=== PATIENT | female | born 1990 | race Caucasian/White ===

== ENCOUNTER 2017-01-28 22:46 | Emergency (ER) | payer SELFPAY ==
[~2017-01-28] VITALS: Ht 180.3 cm; Wt 128.0 kg
[~2017-01-28 22:46] MED LIST: BIRTH CONTROL; CIPROFLOXACN500 MG PO; FLEXERIL PO; LEXAPRO10 MG PO; PROAIR HFA IN; PROZAC20 MG PO; SINGLAIR 5 MG CH5 MG PO; ULTRAM50 M1 PO; ZOFRAN4 MG/TAB PO
[2017-01-28] MEDS ORDERED: ORTHO TRI-CYCLEN LO PO (23:02)
[2017-01-29 00:16] LABS: HEMATOCRIT 40.9 % (37.0-47.0); HEMOGLOBIN 13.6 g/dl (12.0-16.0); IMMATURE GRANULOCYTES 0.3 % (0.0-1.0); MEAN CELL VOLUME 84.3 fL CALC (80.0-100.0); MEAN CORPUSCULAR HGB CONC 33.3 g/L CALC (32.0-36.0); NEUT# 7.92 thou/uL (2.00-7.15); RED BLOOD COUNT 4.85 mill/uL (4.20-5.60)
[2017-01-29 00:17] LABS: URINE BILIRUBIN - DIPSTICK NEGATIVE (NEGATIVE); URINE BLOOD DIPSTICK LARGE (NEGATIVE); URINE CLARITY CLEAR; URINE COLOR YELLOW; URINE GLUCOSE - DIPSTICK NEGATIVE (NEGATIVE); URINE KETONE NEGATIVE (NEGATIVE); URINE LEUK ESTERASE NEGATIVE (NEGATIVE); URINE NITRITE - DIPSTICK NEGATIVE (Negative); URINE PH 5.5 (4.5-8.0); URINE PROTEIN - DIPSTICK NEGATIVE (NEG-TRACE); URINE SPECIFIC GRAVITY >=1.030; URINE UROBILINOGEN - DIPSTICK 0.2 E.U./dL (0.2)
[2017-01-29 00:27] LABS: ALBUMIN 3.5 g/dL (3.2-5.0); ALKALINE PHOSPHATASE 127 u/l (38-126); AMYLASE 75 u/l (30-110); ANION GAP 15 (6-22 (CALC)); BILIRUBIN, TOTAL 0.2 mg/dL (0.0-1.4); BUN 14 mg/dL (7-17); BUN/CREATININE RATIO 12 (12-20 (CALC)); CALCIUM 9.2 mg/dL (8.4-10.2); CARBON DIOXIDE 25 mmol/l (22-30); CHLORIDE 106 mmol/l (95-108); CREATININE 1.2 mg/dL (0.5-1.0); GFR 55 ML/MIN (>=60 (CALC)); GFR FOR AFR.AMER. > 60 ML/MIN (>=60 (CALC)); GLUCOSE 97 mg/dL (65-105); LIPASE 208 u/l (23-300); POTASSIUM 3.5 mmol/l (3.5-5.1); SGOT/AST 32 u/l (14-36); SGPT/ALT 42 u/l (9-52); SODIUM 142 mmol/l (137-146); TOTAL PROTEIN 6.4 g/dL (6.3-8.2)
[2017-01-29 00:30] LABS: URINE RBC 50-100 RBC/hpf (0-5)
[2017-01-29 00:31] LABS: URINE BACTERIA FEW hpf; URINE CALCIUM OXALATE CRYSTALS FEW lpf; URINE MUCUS MODERATE hpf (NONE-FEW); URINE TRANSITIONAL EPI. CELLS FEW hpf
[2017-01-29] MEDS ORDERED: PERCOCET 5/325M1 TAB PO (01:26)
[2017-01-29 01:46] VITALS: BP 133/90
== END 2017-01-29 01:56 | disposition home or self-care (01) | DRG 392 ==
LOC: ED 22:46
PROVIDERS: Emergency Medicine
DX: R10.32 Left lower quadrant pain (principal); N21.1 Calculus in urethra; R19.7 Diarrhea, unspecified

== ENCOUNTER 2019-03-29 12:05 | Observation (INO) | payer SELFPAY ==
[~2019-03-29] VITALS: Ht 177.8 cm; Wt 131.3 kg
[~2019-03-29 12:05] MED LIST changes: +ORTHO TRI-CYCLEN LO PO; +PERCOCET 5/325M1 TAB PO
[2019-03-29 13:02] LABS: IMMATURE GRANULOCYTES 0.4 % (0.0-5.0); MEAN CELL VOLUME 84.3 fL CALC (80.0-100.0); MEAN CORPUSCULAR HGB 26.8 pG CALC (26.0-32.0); MEAN CORPUSCULAR HGB CONC 31.8 g/L CALC (32.0-36.0); NEUT# 11.42 thou/uL (2.00-7.15); RED BLOOD COUNT 5.22 mill/uL (4.20-5.60); RED CELL DISTRI WIDTH 13.4 % (11.5-15.5)
[2019-03-29 13:03] LABS: URINE BILIRUBIN - DIPSTICK NEGATIVE (NEGATIVE); URINE BLOOD DIPSTICK LARGE (NEGATIVE); URINE COLOR YELLOW; URINE GLUCOSE - DIPSTICK NEGATIVE (NEGATIVE); URINE KETONE TRACE mg/dL (NEGATIVE); URINE LEUK ESTERASE TRACE (NEGATIVE); URINE NITRITE - DIPSTICK NEGATIVE (Negative); URINE PROTEIN - DIPSTICK TRACE mg/dL (NEG-TRACE); URINE SPECIFIC GRAVITY >=1.030; URINE UROBILINOGEN - DIPSTICK 0.2 E.U./dL (0.2)
[2019-03-29 13:07] LABS: BARBITURATES NEGATIVE (NEGATIVE); COCAINE NEGATIVE (NEGATIVE); METHADONE NEGATIVE (NEGATIVE); OXCYCODONE NEGATIVE (NEGATIVE); TETRAHYDROCANNABIONOL NEGATIVE (NEGATIVE); TRICYLIC ANTIDEPRESSANTS NEGATIVE (NEGATIVE)
[2019-03-29 13:10] LABS: URINE BACTERIA MANY hpf
[2019-03-29 13:11] LABS: URINE SQUAMOUS EPITHELIAL CELL FEW EPI/hpf (0-FEW)
[2019-03-29 13:12] LABS: URINE HYALINE CAST FEW lpf (NONE-RARE)
[2019-03-29 13:20] LABS: ALBUMIN 4.5 g/dL (3.2-5.0); ALKALINE PHOSPHATASE 196 u/l (38-126); ANION GAP 17 (6-22 (CALC)); BILIRUBIN, TOTAL 0.4 mg/dL (0.0-1.4); BUN 12 mg/dL (7-17); BUN/CREATININE RATIO 14 (12-20 (CALC)); CARBON DIOXIDE 22 mmol/l (22-30); CHLORIDE 108 mmol/l (95-108); CREATININE 0.9 mg/dL (0.5-1.0); GFR > 60 ML/MIN (>=60 (CALC)); GFR FOR AFR.AMER. > 60 ML/MIN (>=60 (CALC)); POTASSIUM 4.1 mmol/l (3.5-5.1); SGOT/AST 25 u/l (14-36); SODIUM 143 mmol/l (137-146); TOTAL PROTEIN 7.5 g/dL (6.3-8.2)
[2019-03-29 19:35] VITALS: BP 112/69
[2019-03-30 04:00] VITALS: BP 102/65
[2019-03-30 05:22] LABS: ALKALINE PHOSPHATASE 147 u/l (38-126); AMYLASE 83 u/l (30-110); ANION GAP 12 (6-22 (CALC)); BILIRUBIN, TOTAL 0.3 mg/dL (0.0-1.4); BUN 11 mg/dL (7-17); BUN/CREATININE RATIO 12 (12-20 (CALC)); CARBON DIOXIDE 26 mmol/l (22-30); CHLORIDE 106 mmol/l (95-108); GFR > 60 ML/MIN (>=60 (CALC)); GFR FOR AFR.AMER. > 60 ML/MIN (>=60 (CALC)); LIPASE 225 u/l (23-300); MAGNESIUM 1.9 mg/dL (1.6-2.3); POTASSIUM 3.8 mmol/l (3.5-5.1); SGOT/AST 18 u/l (14-36); SODIUM 140 mmol/l (137-146); TOTAL PROTEIN 6.1 g/dL (6.3-8.2)
[2019-03-30 05:25] LABS: HEMATOCRIT 38.7 % (37.0-47.0); HEMOGLOBIN 12.4 g/dl (12.0-16.0); IMMATURE GRANULOCYTES 0.4 % (0.0-5.0); MEAN CELL VOLUME 86.2 fL CALC (80.0-100.0); MEAN CORPUSCULAR HGB 27.6 pG CALC (26.0-32.0); NEUT# 6.62 thou/uL (2.00-7.15); RED BLOOD COUNT 4.49 mill/uL (4.20-5.60); RED CELL DISTRI WIDTH 13.5 % (11.5-15.5)
[2019-03-30 05:26] LABS: ALBUMIN 3.5 g/dL (3.2-5.0)
[2019-03-30 07:34] VITALS: BP 109/59
[2019-03-30 16:15] VITALS: BP 115/73
[2019-03-30 19:20] VITALS: BP 111/68
[2019-03-31 04:11] VITALS: BP 108/72
[2019-03-31 05:15] LABS: HEMATOCRIT 38.3 % (37.0-47.0); HEMOGLOBIN 12.1 g/dl (12.0-16.0); IMMATURE GRANULOCYTES 0.2 % (0.0-5.0); MEAN CORPUSCULAR HGB 27.5 pG CALC (26.0-32.0); MEAN CORPUSCULAR HGB CONC 31.6 g/L CALC (32.0-36.0); NEUT# 4.89 thou/uL (2.00-7.15); RED BLOOD COUNT 4.4 mill/uL (4.20-5.60); RED CELL DISTRI WIDTH 13.6 % (11.5-15.5)
[2019-03-31 05:32] LABS: ALBUMIN 3.2 g/dL (3.2-5.0); ALKALINE PHOSPHATASE 131 u/l (38-126); ANION GAP 11 (6-22 (CALC)); BILIRUBIN, TOTAL 0.3 mg/dL (0.0-1.4); BUN 14 mg/dL (7-17); BUN/CREATININE RATIO 15 (12-20 (CALC)); CARBON DIOXIDE 28 mmol/l (22-30); CHLORIDE 106 mmol/l (95-108); CREATININE 0.9 mg/dL (0.5-1.0); GFR > 60 ML/MIN (>=60 (CALC)); GFR FOR AFR.AMER. > 60 ML/MIN (>=60 (CALC)); SGOT/AST 16 u/l (14-36); SODIUM 141 mmol/l (137-146); TOTAL PROTEIN 5.8 g/dL (6.3-8.2)
== END 2019-03-31 13:30 | disposition home or self-care (01) | DRG 988 ==
LOC: ED 12:05 → ED-I 14:41 → ED 15:24 → MS2 15:25
PROVIDERS: Emergency Medicine; ADMIT Internal Medicine Nephrology; ATTEND Internal Medicine Nephrology
PROC: 0W9F3ZX Drainage of Abdominal Wall, Percutaneous Approach, Diagnostic (ICD-10-PCS; principal; 2019-03-30)
DX: M79.81 Nontraumatic hematoma of soft tissue (principal); Z68.41 Body mass index [BMI] 40.0-44.9, adult; K80.20 Calculus of gallbladder without cholecystitis without obstruction; G89.29 Other chronic pain; M54.9 Dorsalgia, unspecified; F32.9 Major depressive disorder, single episode, unspecified; E66.9 Obesity, unspecified
CPT/HCPCS: G0378; Q9967

== ENCOUNTER 2019-04-03 00:48 | Emergency (ER) | payer SELFPAY ==
[~2019-04-03] VITALS: Ht 177.8 cm; Wt 130.0 kg
[2019-04-03] MEDS ORDERED: OMEPRAZOLE10 MG PO (01:03)
[2019-04-03] MEDS ORDERED: ALLEGRA180 MG PO (01:03)
[2019-04-03] MEDS ORDERED: HYDROCHLOROT25 MG PO (01:04)
[2019-04-03] MEDS ORDERED: SIMVASTATIN5 MG PO (01:04)
[2019-04-03 01:31] LABS: HEMATOCRIT 45.8 % (37.0-47.0); HEMOGLOBIN 14.6 g/dl (12.0-16.0); IMMATURE GRANULOCYTES 0.3 % (0.0-5.0); MEAN CORPUSCULAR HGB 27.1 pG CALC (26.0-32.0); MEAN CORPUSCULAR HGB CONC 31.9 g/L CALC (32.0-36.0); NEUT# 6.54 thou/uL (2.00-7.15); RED BLOOD COUNT 5.39 mill/uL (4.20-5.60); RED CELL DISTRI WIDTH 13.3 % (11.5-15.5)
[2019-04-03 01:35] LABS: ALBUMIN 4.4 g/dL (3.2-5.0); ALKALINE PHOSPHATASE 173 u/l (38-126); AMYLASE 85 u/l (30-110); ANION GAP 16 (6-22 (CALC)); BILIRUBIN, TOTAL 0.3 mg/dL (0.0-1.4); BUN 13 mg/dL (7-17); BUN/CREATININE RATIO 14 (12-20 (CALC)); CARBON DIOXIDE 29 mmol/l (22-30); CHLORIDE 103 mmol/l (95-108); GFR > 60 ML/MIN (>=60 (CALC)); GFR FOR AFR.AMER. > 60 ML/MIN (>=60 (CALC)); LIPASE 229 u/l (23-300); POTASSIUM 4.2 mmol/l (3.5-5.1); SGOT/AST 35 u/l (14-36); SODIUM 144 mmol/l (137-146); TOTAL PROTEIN 7.4 g/dL (6.3-8.2)
[2019-04-03] MEDS ORDERED: LORTAB 5/3255 MG PO (01:50)
[2019-04-03] MEDS ORDERED: PHENERGAN25 MG/TAB PO (01:50)
[2019-04-03 02:20] VITALS: BP 91/62
[2019-04-04] MEDS ORDERED: PERCOCET 5/325M1 TAB PO (11:15)
== END 2019-04-03 02:20 | disposition home or self-care (01) | DRG 446 ==
LOC: ED 00:48
PROVIDERS: Family Medicine
DX: K80.20 Calculus of gallbladder without cholecystitis without obstruction (principal)

== ENCOUNTER 2019-04-04 07:17 | Day surgery (SDC) | payer SELFPAY ==
[~2019-04-04] VITALS: Ht 177.8 cm; Wt 131.3 kg
[~2019-04-04 07:17] MED LIST changes: +ALLEGRA180 MG PO; +HYDROCHLOROT25 MG PO; +LORTAB 5/3255 MG PO; +OMEPRAZOLE10 MG PO; +PHENERGAN25 MG/TAB PO; +SIMVASTATIN5 MG PO
[2019-04-04 11:09] VITALS: BP 105/55
[2019-04-04] MEDS ORDERED: PERCOCET 5/325M1 TAB PO (11:15)
== END 2019-04-04 11:49 | disposition home or self-care (01) | DRG 419 ==
LOC: ORM 07:17
PROVIDERS: ATTEND Surgery
PROC: 0FT44ZZ Resection of Gallbladder, Percutaneous Endoscopic Approach (ICD-10-PCS; principal; 2019-04-04)
PROC: BF101ZZ Fluoroscopy of Bile Ducts using Low Osmolar Contrast (ICD-10-PCS; 2019-04-04)
DX: K80.12 Calculus of gallbladder with acute and chronic cholecystitis without obstruction (principal)
CPT/HCPCS: J0131; J1100; J2710; Q9967

== ENCOUNTER 2019-08-06 17:46 | Emergency (ER) | payer SELFPAY ==
[~2019-08-06] VITALS: Ht 177.8 cm; Wt 105.0 kg
[2019-08-06] MEDS ORDERED: TRAMADOL HYDROC50 M1 PO (17:57)
[2019-08-06] MEDS ORDERED: SINGULAIR10 MG PO (17:59)
[2019-08-06] MEDS ORDERED: VITAMIN D1000 UNIT PO (18:00)
[2019-08-06] MEDS ORDERED: FISH OIL1000 M2 (18:00)
[2019-08-06] MEDS ORDERED: MULTIVITAMI3 (18:00)
[2019-08-06] MEDS ORDERED: BACTRIM DS1 TAB PO (18:22)
[2019-08-06] MEDS ORDERED: KEFLEX500 M1 PO (18:22)
[2019-08-06 18:37] VITALS: BP 128/77
== END 2019-08-06 18:32 | disposition home or self-care (01) | DRG 603 ==
LOC: ED 17:46
DX: L02.412 Cutaneous abscess of left axilla (principal); L02.411 Cutaneous abscess of right axilla; I10 Essential (primary) hypertension

== ENCOUNTER 2019-12-16 | Emergency (ER) | payer SELFPAY ==
[~2019-12-16] MED LIST changes: +BACTRIM DS1 TAB PO; +FISH OIL1000 M2; +KEFLEX500 M1 PO; +MULTIVITAMI3; +SINGULAIR10 MG PO; +TRAMADOL HYDROC50 M1 PO; +VITAMIN D1000 UNIT PO
[2019-12-16] MEDS ORDERED: DOXYCYCL HYC100 MG PO (23:35)
== END 2019-12-17 00:19 | disposition home or self-care (01) | DRG 603 ==
PROC: 0H9JXZZ Drainage of Left Upper Leg Skin, External Approach (ICD-10-PCS; principal; 2019-12-16)
DX: L02.416 Cutaneous abscess of left lower limb (principal); I10 Essential (primary) hypertension

== ENCOUNTER 2019-12-18 | Emergency (ER) | payer SELFPAY ==
[~2019-12-18] MED LIST changes: +DOXYCYCL HYC100 MG PO
== END 2019-12-18 17:40 | disposition home or self-care (01) | DRG 951 ==
DX: Z48.01 Encounter for change or removal of surgical wound dressing (principal); I10 Essential (primary) hypertension

== ENCOUNTER 2019-12-27 17:57 | Emergency (ER) | payer SELFPAY ==
[2019-12-27 18:35] VITALS: BP 135/77
== END 2019-12-27 18:35 | disposition home or self-care (01) | DRG 951 ==
LOC: ED 17:57
DX: Z48.01 Encounter for change or removal of surgical wound dressing (principal); I10 Essential (primary) hypertension

== ENCOUNTER 2020-03-22 04:56 | Emergency (ER) | payer SELFPAY ==
[2020-03-22 05:08] VITALS: BP 143/94
[2020-03-22] MEDS ORDERED: PERCOCET 5/321 COMBO PO (05:27)
[2020-03-22] MEDS ORDERED: ACETIC ACID2 % OT ×2 (05:27)
[2020-03-22] MEDS ORDERED: AMOXICILLIN500 MG PO (05:27)
== END 2020-03-22 05:47 | disposition home or self-care (01) | DRG 156 ==
LOC: ED 04:56
DX: H60.92 Unspecified otitis externa, left ear (principal); I10 Essential (primary) hypertension

== ENCOUNTER 2020-04-24 16:43 | Emergency (ER) | payer SELFPAY ==
[~2020-04-24] VITALS: Ht 177.8 cm; Wt 140.0 kg
[~2020-04-24 16:43] MED LIST changes: +ACETIC ACID2 % OT; +AMOXICILLIN500 MG PO; +PERCOCET 5/321 COMBO PO
[2020-04-24 16:48] VITALS: BP 138/82
[2020-04-24] MEDS ORDERED: ACYCLOVIR800 MG PO (16:55)
[2020-04-24] MEDS ORDERED: LYSINE500 M1 PO (16:55)
[2020-04-24 17:46] LABS: HEMATOCRIT 42.6 % (37.0-47.0); HEMOGLOBIN 13.3 g/dl (12.0-16.0); IMMATURE GRANULOCYTES 0.3 % (0.0-5.0); MEAN CELL VOLUME 85.4 fL CALC (80.0-100.0); MEAN CORPUSCULAR HGB 26.7 pG CALC (26.0-32.0); MEAN CORPUSCULAR HGB CONC 31.2 g/dL CAL (32.0-36.0); NEUT# 9.16 thou/uL (2.00-7.15); RED BLOOD COUNT 4.99 mill/uL (4.20-5.60); RED CELL DISTRI WIDTH 13.8 % (11.5-15.5)
[2020-04-24 18:12] LABS: BUN 12 mg/dL (7-17); BUN/CREATININE RATIO 15 (12-20 (CALC)); CHLORIDE 105 mmol/l (95-108); CREATININE 0.8 mg/dL (0.5-1.0); GFR > 60 ML/MIN (>=60 (CALC)); GFR FOR AFR.AMER. > 60 ML/MIN (>=60 (CALC)); POTASSIUM 4.1 mmol/l (3.5-5.1)
[2020-04-24 18:13] LABS: ANION GAP 13 (6-22 (CALC)); CARBON DIOXIDE 22 mmol/l (22-30); SODIUM 136 mmol/l (137-146)
[2020-04-24] MEDS ORDERED: CIPROFLOXACN500 MG PO (18:54)
[2020-04-24] MEDS ORDERED: CIPRODEX1 ML AD ×2 (18:54)
== END 2020-04-24 19:08 | disposition home or self-care (01) | DRG 153 ==
LOC: ED 16:43
PROVIDERS: Family Medicine
DX: H70.91 Unspecified mastoiditis, right ear (principal); H60.91 Unspecified otitis externa, right ear; I10 Essential (primary) hypertension

== ENCOUNTER 2020-04-28 01:24 | Emergency (ER) | payer SELFPAY ==
[~2020-04-28] VITALS: Ht 177.8 cm; Wt 95.0 kg
[~2020-04-28 01:24] MED LIST changes: +ACYCLOVIR800 MG PO; +CIPRODEX1 ML AD; +LYSINE500 M1 PO
[2020-04-28] MEDS ORDERED: CORTISPORIN OTI10 ML AD (01:48)
[2020-04-28] MEDS ORDERED: LEVAQUIN750 MG PO (02:18)
[2020-04-28] MEDS ORDERED: VOLTAREN - GENE75 MG PO (02:18)
[2020-04-28 02:41] VITALS: BP 132/74
== END 2020-04-28 02:41 | disposition home or self-care (01) | DRG 153 ==
LOC: ED 01:24
DX: H66.91 Otitis media, unspecified, right ear (principal); H70.91 Unspecified mastoiditis, right ear; I10 Essential (primary) hypertension

== ENCOUNTER 2020-11-02 23:04 | Observation (INO) | payer SELFPAY ==
[~2020-11-02] VITALS: Ht 177.8 cm; Wt 145.0 kg
[~2020-11-02 23:04] MED LIST changes: +CORTISPORIN OTI10 ML AD; +LEVAQUIN750 MG PO; +VOLTAREN - GENE75 MG PO
--- NOTE | 2020-11-02 23:10 | NUR ---
PT ARRIVED VIA PMV. FROM WR TO ROOM 6 VIA W/C. PT UP TO BR TO VOID AND OBTAIN SAMPLE. PT RETURNED TO ROOM FOR TRIAGE.
--- NOTE | 2020-11-02 23:34 | NUR ---
STOKE ALERT CALL.
--- NOTE | 2020-11-02 23:44 | NUR ---
PT ON CT TABLE.
[2020-11-02 23:46] LABS: HEMATOCRIT 39.2 % (37.0-47.0); HEMOGLOBIN 12.2 g/dl (12.0-16.0); IMMATURE GRANULOCYTES 0.3 % (0.0-5.0); MEAN CELL VOLUME 83.9 fL CALC (80.0-100.0); MEAN CORPUSCULAR HGB 26.1 pG CALC (26.0-32.0); MEAN CORPUSCULAR HGB CONC 31.1 g/dL CAL (32.0-36.0); NEUT# 8.16 thou/uL (2.00-7.15); RED BLOOD COUNT 4.67 mill/uL (4.20-5.60)
[2020-11-02 23:47] LABS: URINE BILIRUBIN - DIPSTICK NEGATIVE (NEGATIVE); URINE BLOOD DIPSTICK LARGE (NEGATIVE); URINE COLOR YELLOW; URINE GLUCOSE - DIPSTICK NEGATIVE (NEGATIVE); URINE KETONE NEGATIVE (NEGATIVE); URINE NITRITE - DIPSTICK NEGATIVE (Negative); URINE PH 5.5 (4.5-8.0); URINE PROTEIN - DIPSTICK 30 mg/dL (NEG-TRACE); URINE SPECIFIC GRAVITY >=1.030; URINE UROBILINOGEN - DIPSTICK 0.2 E.U./dL (0.2)
[2020-11-02 23:48] LABS: URINE LEUK ESTERASE NEGATIVE (NEGATIVE)
[2020-11-02 23:54] LABS: GFR > 60 ML/MIN (>=60 (CALC)); GFR FOR AFR.AMER. > 60 ML/MIN (>=60 (CALC))
[2020-11-02 23:56] LABS: URINE BACTERIA MANY hpf; URINE EPITHELIAL CELLS MANY EPI/hpf (0-FEW); URINE RBC 50-100 RBC/hpf (0-5)
[2020-11-03 00:03] LABS: ALBUMIN 3.7 g/dL (3.2-5.0); ALKALINE PHOSPHATASE 156 u/l (38-126); ANION GAP 13 (6-22 (CALC)); BILIRUBIN, TOTAL 0.4 mg/dL (0.0-1.4); BUN 11 mg/dL (7-17); BUN/CREATININE RATIO 14 (12-20 (CALC)); CARBON DIOXIDE 21 mmol/l (22-30); CHLORIDE 106 mmol/l (95-108); CREATININE 0.8 mg/dL (0.5-1.0); GFR > 60 ML/MIN (>=60 (CALC)); GFR FOR AFR.AMER. > 60 ML/MIN (>=60 (CALC)); POTASSIUM 3.7 mmol/l (3.5-5.1); SGOT/AST 33 u/l (14-36); SODIUM 135 mmol/l (137-146); TOTAL PROTEIN 6.8 g/dL (6.3-8.2)
[2020-11-03 00:05] LABS: INTERNATIONAL NORMALIZED RATIO 0.9 RATIO (0.7-1.3); PROTHROMBIN TIME 9.3 SECONDS (9.0-12.5)
--- NOTE | 2020-11-03 00:20 | NUR ---
RETURNED FROM CT VIA STRETCHER. DURING CT PT STATES NUMBNESS GOING UP INTO RIGHT CHEEK. STROKE SCALE ON TELESTROKE WITH NEROLOGIST TIN COBB MD.
--- NOTE | 2020-11-03 02:00 | NUR ---
A/O AMBULATORY TO BR TO VOID. NO CHANGE IN NEURO DEFICITS. PT BACK TO BED...HOSPITAL BED PT WILL BE A HOLD IN THE ER.
--- NOTE | 2020-11-03 04:00 | NUR ---
PT AWAKENED/STROKE SCALE WITHOUT CHANGE. VSS.
--- NOTE | 2020-11-03 06:00 | NUR ---
PT SLEEPING. NAD. VSS
--- NOTE | 2020-11-03 07:00 | NUR ---
REPORT TO JESSICA. PT SLEEPING. AWAKENED AND EVALUATED. NO CHANGE IN CONDITIION.
[2020-11-03] MEDS ORDERED: NORGESTIMATE (08:22)
[2020-11-03] MEDS ORDERED: ETHINYL ESTRADIOL (08:22)
[2020-11-03] MEDS ORDERED: VIT A & D PO (08:28)
[2020-11-03] MEDS ORDERED: ACETAMINOP160 MG/5 M PO (08:29)
--- NOTE | 2020-11-03 10:00 | NUR ---
recieved for care. Up to br with assistance. Tolerated well.Returned to bed,calll gamez in place.
--- NOTE | 2020-11-03 10:11 | NUR ---
REPORT PROVIDED TO ALEXEI BECKHAM
--- NOTE | 2020-11-03 11:00 | NUR ---
resting quietly,no c/o
[2020-11-03 12:00] VITALS: BP 113/55
--- NOTE | 2020-11-03 12:28 | NUR ---
PATIENT RESTING. NO DISTRESS. CALL ZAVALA IN PLACE.
--- NOTE | 2020-11-03 13:14 | NUR ---
PATEINT RESTING. WATCHING TV.CALL ZAVALA IN PLACE. BED I LOW POAITION.
--- NOTE | 2020-11-03 13:53 | NUR ---
PATIENT SLEEPING. BED IN LOW POSITION. CALL ZAVALA AVAILABLE
--- NOTE | 2020-11-03 14:50 | NUR ---
PATIENT CALM. NO DISTRESS AT THIS TIME. CALL ZAVALA IN REACH. BED IN LOW POSITION.
--- NOTE | 2020-11-03 15:45 | NUR ---
no distress. Call gamez available. Bed in low position.
--- NOTE | 2020-11-03 17:26 | NUR ---
MEAL TRAY GIVEN.
[2020-11-03 17:27] VITALS: BP 137/87
--- NOTE | 2020-11-03 18:30 | NUR ---
patient resting,no c/o
--- NOTE | 2020-11-03 19:30 | NUR ---
Patient watching tv. no c/o.Call gamez available
[2020-11-03 20:30] VITALS: BP 115/61
--- NOTE | 2020-11-03 20:40 | NUR ---
hourly rounding continues. Patient comfortable. No distress at this time.
--- NOTE | 2020-11-03 22:09 | NUR ---
REPORT RECEIVED FROM ALEXEI BECKHAM
--- NOTE | 2020-11-04 | NUR ---
PT RESTING ON STRETCHER IN NAD. RESP EVEN AND UNLABORED. SKIN WARM AND DRY. VERBALIZES NEED FOR HER HOME MEDICATIONS. PT MED REC UPDATED.
[2020-11-04] MEDS ORDERED: ALLEGRA60 MG PO (03:48)
[2020-11-04] MEDS ORDERED: SINGULAIR10 MG PO (03:49)
[2020-11-04 05:59] LABS: HEMATOCRIT 38.5 % (37.0-47.0); HEMOGLOBIN 11.8 g/dl (12.0-16.0); IMMATURE GRANULOCYTES 0.2 % (0.0-5.0); MEAN CORPUSCULAR HGB CONC 30.6 g/dL CAL (32.0-36.0); NEUT# 7.94 thou/uL (2.00-7.15); RED BLOOD COUNT 4.53 mill/uL (4.20-5.60); RED CELL DISTRI WIDTH 14.2 % (11.5-15.5)
[2020-11-04 06:38] LABS: ANION GAP 9 (6-22 (CALC)); BUN 13 mg/dL (7-17); BUN/CREATININE RATIO 15 (12-20 (CALC)); CALCULATED LDLCHOLESTEROL 108 mg/dL (62-129 (CALC)); CARBON DIOXIDE 24 mmol/l (22-30); CHLORIDE 107 mmol/l (95-108); CHOLESTEROL HDL RATIO 3.2 (<4.4 (CALC)); CREATININE 0.8 mg/dL (0.5-1.0); GFR > 60 ML/MIN (>=60 (CALC)); GFR FOR AFR.AMER. > 60 ML/MIN (>=60 (CALC)); HDL CHOLESTEROL 58 mg/dL (>=40); POTASSIUM 3.9 mmol/l (3.5-5.1); SODIUM 136 mmol/l (137-146); TOTAL CHOLESTEROL 187 mg/dl (0-199); TOTAL TRIGLYCERIDES 104 mg/dl (30-149); VLDL CHOLESTROL 21 mg/dl (2-29 (CALC))
[2020-11-04 07:00] VITALS: BP 133/78
--- NOTE | 2020-11-04 07:00 | NUR ---
REPORT GIVEN TO ALEXEI JOHANSEN.
--- NOTE | 2020-11-04 07:11 | NUR ---
REPORT TAKEN FROM MIDNIGHT RN
--- NOTE | 2020-11-04 08:39 | NUR ---
PT RECIEVED A BREAKFAST TRAY
--- NOTE | 2020-11-04 09:52 | NUR ---
Reassessment of patient completed. No distress noted.
--- NOTE | 2020-11-04 11:10 | NUR ---
returned from xray. call gamez in reach. bed in low position. no distress at this time.
--- NOTE | 2020-11-04 11:30 | NUR ---
Discharged to: Home Discharged via: Ambulatory Accompanied by: family D/C Condition: stable Diet: as tolerated Diet modification: Activity: As tolerated Home Health: NONE Follow up appointment: Special instructions: Medications: SEE MEDICATION RECONCILIATION FORM Prescriptions Given: Please notify your physician if you received either one of these vaccinations: Influenza Vaccine - Date: Pneumococcal Vaccine - Date: Patient Education Materials Provided: - Food and Drug Interaction Guide - Anticoagulation Education Booklet Contains the following information: 1. Compliance issues 2. Dietary advice 3. Follow up monitoring 4. Potential for adverse drug reactions and interactions - Smoking Cessation Booklet IF SYMPTOMS WORSEN, OR IF YOU HAVE ADDITIONAL QUESTIONS, PLEASE CONTACT YOUR PERSONAL PHYSICIAN OR SEEK EMERGENCY CARE. CALL YOUR PHYSICIAN IF YOU DO NOT GET RELIEF FROM THE PAIN MEDICATIONS PRESCRIBED, OR IF THE INTENSITY OF PAIN INCREASES, OR IF PAIN IS INTERFERING WITH ACTIVITY OR REST. IF YOU SMOKE, YOU NEED TO QUIT. IT IS GOOD FOR YOU AND EVERYONE AROUND YOU! Your physician and [facility] care about you and your health. The facts are clear. Smoking causes 1 out of 5 deaths in the [place] each year. It is the major preventable cause of emphysema, lung cancer, chronic bronchitis, heart disease and stroke. Quitting is one of the best things you can ever do for yourself and those you love. What better time to quit than now! You've already been cigarette free during your stay. Studies have shown that the first 48 hours of quitting are the toughest. Just a few of the benefits your body begins to experience are blood pressure returns to normal, the carbon monoxide level in your blood drops to normal, your chance of heart attack decreases, and your ability to smell and taste is enhanced. Here are some resources that you may find helpful: [place] [employer] [place] [employer] www.lungusa.org www.cancer.org [place] [employer] [place] [employer] (Tobacco Prevention and Control Program) www.americanheart.org www.rebeka.[facility].fl.us Finally don't forget that your doctor may be able to help you. Whichever method you choose will be good for you. IF YOU HAVE A DIAGNOSIS OF CONGESTIVE HEART FAILURE, THERE ARE SEVERAL ADDITIONAL INSTRUCTIONS FOR YOU TO FOLLOW UPON DISCHARGE FROM THE HOSPITAL. Weigh yourself every day and if weight gain is greater than 2 pounds in a day, call your physican. If you experience worsening symptoms such as: Problems with breathing or shortness of breath Ankle/foot/leg swelling Unexplained weight gain greater than 2 pounds Call your physician or come to the emergency room. IF YOU HAVE A DIAGNOSIS OF STROKE, THERE ARE SEVERAL ADDITIONAL INSTRUCTIONS FOR YOU TO FOLLOW: A stroke occurs when something happens to interrupt the steady flow of blood to the brain, like a clot or a burst in a blood vessel. Brain cells quickly begin to . These INCREASE your chance of having a STROKE: * Smoking * High blood pressure * Diabetes * Obesity WARNING SIGNS OR SYMPTOMS: * Sudden weakness on one side of body. * Sudden confusion, trouble speaking or understanding. * Sudden trouble seeing. * Sudden trouble walking or loss of balance. * Sudden severe headache with no known cause. CALL At Any Sign of Stroke. You can beat a stroke. Disabilities can be prevented or limited, but you have must go to the Emergency Department immediately. Go in an Ambulance. Save Time. Be Seen Faster! If you were admitted to the hospital for a stroke After DISCHARGE you must: * Keep ALL follow up appointments. * Take your medications as ordered by your doctor. * Do not take any other drugs without checking with your doctor first. * Do not drive unless your doctor says it is okay. * Call your doctor with any questions or concerns. IF YOU WERE DISCHARGED ON COUMADIN/WARFARIN ANTICOAGULATION THERAPY, THERE ARE SEVERAL ADDITIONAL INSTRUCTIONS FOR YOU TO FOLLOW: Anticoagulants are medications that help prevent blood clots. They are often prescribed for people with certain heart, lung and blood vessel diseases to help prevent heart attacks and strokes. IMPORTANT Anticoagulation medications have been used for many years, but it can be difficult to manage. That's because many factors can affect how they work-including small changes in dose or dose timing, what you eat or drink, other medications and stress. You and your doctor must work closely together to manage this important medication. * Take your medicine EXACTLY as instructed by your doctor. * You must have your blood drawn for PT/INR to monitor your medication. * Do not take any new medications, vitamins or herbal supplements without asking your doctor first. FOODS: * Eat the same amount of foods that contain Vitamin K every day. * Avoid or limit alcohol. * Avoid major changes in diet or notify your doctor first. FOLLOW UP MONITORING: See your physician within one week to monitor your condition. You will need to have blood tests performed to monitor the medication. DRUG INTERACTIONS: * Diet and medications can affect the PT/INR level. * Do not take or discontinue any medication or over the counter medication unless your doctor okays. * Warfarin/Coumadin increases the risk of bleeding. CALL YOUR PHYSICIAN IF: If you notice any signs of increased bleedin. Excessive bruising. 2. Abnormal bleeding from nose or gums. 3. [place], red or dark brown urine. 4. Minor bleeding or bright red blood from the bowel. CALL 911 OR GO TO THE HOSPITAL IF: 1. You have black tarry stools. 2. Sudden dizziness, faintness or weakness. 3. Cold or numbness in arm or leg. 4. Sudden chest pain. 5. Trouble talking or moving one side of body. 6. Coughing or vomiting bright red blood. 7. Severe headache or stomach pain. 8. Serious fall or hit to the head. Visit our website at [email or web address] You are going home today. Depending on your insurance coverage, you may be receiving a bill from the hospital for your hospital stay. If you have any question about your bill, please call the Business Office at [phone] or contact us at our web address: [email or web address]. If applicable, I have received my medication information as recommeded by my provider upon discharge. I have read and understand the above discharge instructions. Pt Signature: Date: Time: Witnessed by: Date: Time: Complete the record of communication to the next provider below. These discharge instructions, including discharge medications, is to be faxed to the next provider at the time of the patient's discharge. ____These instructions faxed to next Provider (Provider Name) on (Date) @ (Time) . ____The second provider involved in patient care following discharge has been faxed this information. These instructions faxed to (Provider-Home Health, Physical Therapy, Agency) on (Date) @ (Time) . OR ____Patient unable/unwilling to verbalize who the next provider of care will be, instructed patient to take these instructions to next appointment with healthcare provider.
--- NOTE | 2020-11-04 11:32 | NUR ---
Discharge instructions given. Patient verbalizes understanding of same. Discharged in stable condition via Ambulatory to Home with family. All belongings sent with pt.
[2020-11-04] MEDS ORDERED: IMITREX25 MG PO (11:35)
[2020-11-04 12:20] VITALS: BP 133/78
== END 2020-11-04 12:20 | disposition home or self-care (01) | DRG 93 ==
LOC: ED 23:04 → ED-I 11-03 01:20 → ED 11-03 01:20 → ED-I 11-03 01:42
PROVIDERS: Emergency Medicine; ADMIT Internal Medicine; ATTEND Internal Medicine
DX: R29.810 Facial weakness (principal); R20.2 Paresthesia of skin; G43.909 Migraine, unspecified, not intractable, without status migrainosus; I10 Essential (primary) hypertension; E66.01 Morbid (severe) obesity due to excess calories; R53.1 Weakness; R20.8 Other disturbances of skin sensation; F32.9 Major depressive disorder, single episode, unspecified; F41.9 Anxiety disorder, unspecified; J45.909 Unspecified asthma, uncomplicated; K21.9 Gastro-esophageal reflux disease without esophagitis; Z79.3 Long term (current) use of hormonal contraceptives; Z20.822 Contact with and (suspected) exposure to COVID-19
CPT/HCPCS: Q9967

== ENCOUNTER 2022-01-05 10:30 | Inpatient (IN) | payer SELFPAY ==
[2022-01-05] VITALS (19 sets, daily range): BP systolic 59–137; BP diastolic 42–71
[~2022-01-05] VITALS: Ht 177.8 cm; Wt 140.0 kg
[~2022-01-05 10:30] MED LIST changes: +ACETAMINOP160 MG/5 M PO; +ALLEGRA ALLERGY60 MG PO; +ETHINYL ESTRADIOL; +IMITREX25 MG PO; +NORGESTIMATE; +VIT A & D PO
[2022-01-05 11:13] LABS: HEMATOCRIT 40.2 % (37.0-47.0); HEMOGLOBIN 12.3 g/dl (12.0-16.0); IMMATURE GRANULOCYTES 0.1 % (0.0-5.0); MEAN CELL VOLUME 80.7 fL CALC (80.0-100.0); MEAN CORPUSCULAR HGB 24.7 pG CALC (26.0-32.0); MEAN CORPUSCULAR HGB CONC 30.6 g/dL CAL (32.0-36.0); NEUT# 9.6 thou/uL (2.00-7.15); RED BLOOD COUNT 4.98 mill/uL (4.20-5.60); RED CELL DISTRI WIDTH 14.4 % (11.5-15.5)
[2022-01-05 11:33] LABS: ALBUMIN 3.8 g/dL (3.2-5.0); ALKALINE PHOSPHATASE 173 u/l (38-126); ANION GAP 11 (6-22 (CALC)); BILIRUBIN, TOTAL 0.5 mg/dL (0.0-1.4); BUN 11 mg/dL (7-17); BUN/CREATININE RATIO 12 (12-20 (CALC)); CARBON DIOXIDE 24 mmol/l (22-30); CHLORIDE 106 mmol/l (95-108); CREATININE 0.9 mg/dL (0.5-1.0); GFR > 60 ML/MIN (>=60 (CALC)); GFR FOR AFR.AMER. > 60 ML/MIN (>=60 (CALC)); POTASSIUM 4.2 mmol/l (3.5-5.1); SGOT/AST 30 u/l (14-36); SODIUM 137 mmol/l (137-146); TOTAL PROTEIN 7.6 g/dL (6.3-8.2)
[2022-01-05 11:44] LABS: MYOGLOBIN 56 ng/mL (0 - 62)
[2022-01-05 12:32] LABS: URINE BILIRUBIN - DIPSTICK NEGATIVE (NEGATIVE); URINE BLOOD DIPSTICK NEGATIVE (NEGATIVE); URINE COLOR YELLOW; URINE GLUCOSE - DIPSTICK NEGATIVE (NEGATIVE); URINE KETONE NEGATIVE (NEGATIVE); URINE LEUK ESTERASE TRACE (NEGATIVE); URINE PH 6.5 (4.5-8.0); URINE PROTEIN - DIPSTICK NEGATIVE (NEG-TRACE); URINE UROBILINOGEN - DIPSTICK 0.2 E.U./dL (0.2)
[2022-01-05 12:34] LABS: URINE NITRITE - DIPSTICK NEGATIVE (Negative)
[2022-01-05] MEDS ORDERED: KEPPRA750 M2 PO (18:44)
[2022-01-05] MEDS ORDERED: [UNRECOGNIZED DRUG - OTHER] PO (18:45)
[2022-01-06] VITALS: BP 96/49
[2022-01-06 04:42] VITALS: BP 108/56
[2022-01-06 05:36] LABS: HEMATOCRIT 39.1 % (37.0-47.0); HEMOGLOBIN 11.8 g/dl (12.0-16.0); MEAN CELL VOLUME 81.3 fL CALC (80.0-100.0); MEAN CORPUSCULAR HGB 24.5 pG CALC (26.0-32.0); MEAN CORPUSCULAR HGB CONC 30.2 g/dL CAL (32.0-36.0); RED BLOOD COUNT 4.81 mill/uL (4.20-5.60); RED CELL DISTRI WIDTH 14.5 % (11.5-15.5)
[2022-01-06 05:58] LABS: ANION GAP 14 (6-22 (CALC)); BUN 13 mg/dL (7-17); BUN/CREATININE RATIO 17 (12-20 (CALC)); CARBON DIOXIDE 21 mmol/l (22-30); CHLORIDE 107 mmol/l (95-108); CREATININE 0.8 mg/dL (0.5-1.0); GFR > 60 ML/MIN (>=60 (CALC)); GFR FOR AFR.AMER. > 60 ML/MIN (>=60 (CALC)); MAGNESIUM 2.5 mg/dL (1.6-2.3); POTASSIUM 4.7 mmol/l (3.5-5.1); SODIUM 137 mmol/l (137-146)
[2022-01-06 10:26] VITALS: BP 96/57
[2022-01-06 15:55] VITALS: BP 119/63
[2022-01-06 19:00] VITALS: BP 119/79
[2022-01-07] VITALS (7 sets, daily range): BP systolic 100–132; BP diastolic 50–72
[2022-01-07 05:17] LABS: HEMOGLOBIN 10.8 g/dl (12.0-16.0); MEAN CELL VOLUME 83.1 fL CALC (80.0-100.0); MEAN CORPUSCULAR HGB 24.9 pG CALC (26.0-32.0); RED BLOOD COUNT 4.33 mill/uL (4.20-5.60); RED CELL DISTRI WIDTH 14.6 % (11.5-15.5)
[2022-01-07 05:36] LABS: ANION GAP 11 (6-22 (CALC)); BUN 13 mg/dL (7-17); BUN/CREATININE RATIO 17 (12-20 (CALC)); CARBON DIOXIDE 22 mmol/l (22-30); CHLORIDE 108 mmol/l (95-108); CREATININE 0.8 mg/dL (0.5-1.0); GFR > 60 ML/MIN (>=60 (CALC)); GFR FOR AFR.AMER. > 60 ML/MIN (>=60 (CALC)); MAGNESIUM 2.2 mg/dL (1.6-2.3); POTASSIUM 4.2 mmol/l (3.5-5.1); SODIUM 137 mmol/l (137-146)
[2022-01-08 03:48] VITALS: BP 104/53
[2022-01-08 05:46] LABS: HEMATOCRIT 36.8 % (37.0-47.0); MEAN CELL VOLUME 82.7 fL CALC (80.0-100.0); MEAN CORPUSCULAR HGB 24.7 pG CALC (26.0-32.0); MEAN CORPUSCULAR HGB CONC 29.9 g/dL CAL (32.0-36.0); RED BLOOD COUNT 4.45 mill/uL (4.20-5.60); RED CELL DISTRI WIDTH 14.2 % (11.5-15.5)
[2022-01-08 05:57] LABS: BUN 14 mg/dL (7-17); BUN/CREATININE RATIO 14 (12-20 (CALC)); CARBON DIOXIDE 23 mmol/l (22-30); CHLORIDE 109 mmol/l (95-108); GFR > 60 ML/MIN (>=60 (CALC)); GFR FOR AFR.AMER. > 60 ML/MIN (>=60 (CALC)); MAGNESIUM 2.1 mg/dL (1.6-2.3); SODIUM 138 mmol/l (137-146)
[2022-01-08 05:59] LABS: ANION GAP 10 (6-22 (CALC)); POTASSIUM 3.8 mmol/l (3.5-5.1)
[2022-01-08 08:04] VITALS: BP 125/76
[2022-01-08 10:45] VITALS: BP 137/89
[2022-01-08 10:51] VITALS: BP 137/89
[2022-01-08] MEDS ORDERED: MEDDOSEPAK PO (11:53)
[2022-01-08] MEDS ORDERED: AZITHROMYCIN500 MG PO (11:54)
== END 2022-01-08 12:51 | disposition home or self-care (01) | DRG 196 ==
LOC: ED 10:30 → ED-I 11:29 → ED 18:08 → MS2 18:09
PROVIDERS: Internal Medicine; ADMIT Hospitalist; ATTEND Hospitalist
DX: J67.9 Hypersensitivity pneumonitis due to unspecified organic dust (principal); J96.01 Acute respiratory failure with hypoxia; J45.901 Unspecified asthma with (acute) exacerbation; Z68.41 Body mass index [BMI] 40.0-44.9, adult; F41.9 Anxiety disorder, unspecified; F32.A Depression, unspecified; K21.9 Gastro-esophageal reflux disease without esophagitis; E66.9 Obesity, unspecified; Z86.14 Personal history of Methicillin resistant Staphylococcus aureus infection; Z87.01 Personal history of pneumonia (recurrent); Z20.822 Contact with and (suspected) exposure to COVID-19
CPT/HCPCS: J1650; J3475; Q9967

== ENCOUNTER 2022-02-19 15:21 | Inpatient (IN) | payer SELFPAY ==
[~2022-02-19] VITALS: Ht 177.8 cm; Wt 145.0 kg
[~2022-02-19 15:21] MED LIST changes: +AZITHROMYCIN500 MG PO; +KEPPRA750 M2 PO; +MEDDOSEPAK PO; +[UNRECOGNIZED DRUG - OTHER] PO
--- NOTE | 2022-02-19 16:25 | NUR ---
PT AMBULATED BACK TO ROOM 11 FOR EVALUATION. NO ACUTE DISTRESS, VITALLY STABLE. PT HOOKED UP TO MONITOR AND MD NOTIFIED OF PT STATUS.
[2022-02-19 16:27] VITALS: BP 126/90
[2022-02-19 16:30] VITALS: BP 115/79
[2022-02-19 16:45] VITALS: BP 116/86
[2022-02-19 17:00] VITALS: BP 125/76
[2022-02-19 17:15] VITALS: BP 123/78
--- NOTE | 2022-02-19 17:28 | NUR ---
Reassessment of patient completed. No distress noted.
[2022-02-19 18:33] LABS: HEMOGLOBIN 12.1 g/dl (12.0-16.0); IMMATURE GRANULOCYTES 0.2 % (0.0-5.0); MEAN CELL VOLUME 79.1 fL CALC (80.0-100.0); MEAN CORPUSCULAR HGB 23.9 pG CALC (26.0-32.0); MEAN CORPUSCULAR HGB CONC 30.3 g/dL CAL (32.0-36.0); NEUT# 5.71 thou/uL (2.00-7.15); RED BLOOD COUNT 5.06 mill/uL (4.20-5.60); RED CELL DISTRI WIDTH 15.1 % (11.5-15.5)
--- NOTE | 2022-02-19 18:41 | NUR ---
Reassessment of patient completed. No distress noted.
[2022-02-19 18:46] LABS: ALBUMIN 3.8 g/dL (3.2-5.0); ALKALINE PHOSPHATASE 152 u/l (38-126); ANION GAP 11 (6-22 (CALC)); BILIRUBIN, TOTAL 0.3 mg/dL (0.0-1.4); BUN 12 mg/dL (7-17); BUN/CREATININE RATIO 13 (12-20 (CALC)); CARBON DIOXIDE 26 mmol/l (22-30); CHLORIDE 107 mmol/l (95-108); GFR > 60 ML/MIN (>=60 (CALC)); GFR FOR AFR.AMER. > 60 ML/MIN (>=60 (CALC)); POTASSIUM 4.2 mmol/l (3.5-5.1); SGOT/AST 29 u/l (14-36); SODIUM 139 mmol/l (137-146); TOTAL PROTEIN 7.4 g/dL (6.3-8.2)
--- NOTE | 2022-02-19 22:15 | NUR ---
PT RESTING. NAD. C/O BEING HUNGRY. PT GIVEN BREAKFAST BAR AND SOME WATER. PT HAPPY. NO C/O.
[2022-02-20] VITALS (7 sets, daily range): BP systolic 97–123; BP diastolic 41–65
--- NOTE | 2022-02-20 00:18 | NUR ---
REPORT TO HANK, NURSE-MED SURG.
--- NOTE | 2022-02-20 00:22 | NUR ---
received report from Meme
--- NOTE | 2022-02-20 00:30 | NUR ---
TO FLOOR VIA STRETCHER WITH NURSING MEDIA DIRECTOR. PT ON O2 VIA NC AT 2 LPM.
[2022-02-20 05:43] LABS: HEMATOCRIT 38.3 % (37.0-47.0); MEAN CELL VOLUME 77.4 fL CALC (80.0-100.0); MEAN CORPUSCULAR HGB 24.2 pG CALC (26.0-32.0); MEAN CORPUSCULAR HGB CONC 31.3 g/dL CAL (32.0-36.0); RED BLOOD COUNT 4.95 mill/uL (4.20-5.60)
[2022-02-20 06:05] LABS: BUN 11 mg/dL (7-17); BUN/CREATININE RATIO 13 (12-20 (CALC)); CHLORIDE 108 mmol/l (95-108); CREATININE 0.9 mg/dL (0.5-1.0); GFR > 60 ML/MIN (>=60 (CALC)); GFR FOR AFR.AMER. > 60 ML/MIN (>=60 (CALC)); MAGNESIUM 2.2 mg/dL (1.6-2.3); POTASSIUM 4.3 mmol/l (3.5-5.1); SODIUM 140 mmol/l (137-146)
[2022-02-20 06:20] LABS: ANION GAP 17 (6-22 (CALC)); CARBON DIOXIDE 19 mmol/l (22-30)
[2022-02-20] MEDS ORDERED: LEVETIRACETAM1000 MG PO (11:05)
--- NOTE | 2022-02-20 19:15 | NUR ---
Received report from Jules LINDA
--- NOTE | 2022-02-20 19:19 | NUR ---
RECEIVED REPORT FROM VERNELL LINDA
[2022-02-21] VITALS (7 sets, daily range): BP systolic 93–125; BP diastolic 47–66
[2022-02-21 05:31] LABS: HEMATOCRIT 35.8 % (37.0-47.0); MEAN CELL VOLUME 79.9 fL CALC (80.0-100.0); MEAN CORPUSCULAR HGB 24.6 pG CALC (26.0-32.0); MEAN CORPUSCULAR HGB CONC 30.7 g/dL CAL (32.0-36.0); RED BLOOD COUNT 4.48 mill/uL (4.20-5.60); RED CELL DISTRI WIDTH 15.5 % (11.5-15.5)
[2022-02-21 05:40] LABS: ANION GAP 10 (6-22 (CALC)); BUN 14 mg/dL (7-17); BUN/CREATININE RATIO 16 (12-20 (CALC)); CHLORIDE 109 mmol/l (95-108); CREATININE 0.9 mg/dL (0.5-1.0); GFR > 60 ML/MIN (>=60 (CALC)); GFR FOR AFR.AMER. > 60 ML/MIN (>=60 (CALC)); MAGNESIUM 2.1 mg/dL (1.6-2.3); SODIUM 139 mmol/l (137-146)
[2022-02-21 06:01] LABS: CARBON DIOXIDE 24 mmol/l (22-30)
--- NOTE | 2022-02-21 08:00 | NUR ---
RESTING QUIETLY IN BED, VITALS STABLE NO C/O PAIN, NO SIGNS OR SYMPTOMS OF DISTRESS NOTED OR VOICED.
--- NOTE | 2022-02-21 12:37 | NUR ---
PATIENT RESTING QUIETLY IN BED, NO SIGNS OR SYMPTOMS OF DISTRESS.
--- NOTE | 2022-02-21 18:47 | NUR ---
RECEIVED REPORT FROM LELO LINDA. PATIENT RESTING IN BED. DENIES ANY PAIN OR DISCOMFORT. CALL ZAVALA WITHIN REACH, BED IN LOW POSTION AND BED ALARM ON
--- NOTE | 2022-02-21 23:11 | NUR ---
PT KEPPRA GIVEN LATE DUE TO PATIENT REQUEST TO COINCIDE WITH LAST ADMINISTRATION TIME BECAUSE SHE TAKES IT EVERY 12 HRS.
[2022-02-22 04:17] VITALS: BP 122/88
[2022-02-22 05:10] LABS: HEMATOCRIT 37.2 % (37.0-47.0); HEMOGLOBIN 11.1 g/dl (12.0-16.0); MEAN CELL VOLUME 81.9 fL CALC (80.0-100.0); MEAN CORPUSCULAR HGB 24.4 pG CALC (26.0-32.0); MEAN CORPUSCULAR HGB CONC 29.8 g/dL CAL (32.0-36.0); RED BLOOD COUNT 4.54 mill/uL (4.20-5.60); RED CELL DISTRI WIDTH 15.4 % (11.5-15.5)
[2022-02-22 05:25] LABS: ANION GAP 11 (6-22 (CALC)); BUN 21 mg/dL (7-17); BUN/CREATININE RATIO 26 (12-20 (CALC)); CARBON DIOXIDE 24 mmol/l (22-30); CHLORIDE 109 mmol/l (95-108); CREATININE 0.8 mg/dL (0.5-1.0); GFR > 60 ML/MIN (>=60 (CALC)); GFR FOR AFR.AMER. > 60 ML/MIN (>=60 (CALC)); MAGNESIUM 2.1 mg/dL (1.6-2.3); SODIUM 140 mmol/l (137-146)
[2022-02-22 07:06] VITALS: BP 96/47
--- NOTE | 2022-02-22 08:46 | NUR ---
PATIENT RESTING QUIETLY IN BED, NO SIGNS OR SYMPTOMS OF DISTRESS NOTED OR VOICED.
[2022-02-22 10:34] VITALS: BP 114/69
[2022-02-22] MEDS ORDERED: PREDNISONE10 MG PO (10:55)
--- NOTE | 2022-02-22 11:54 | NUR ---
PATIENT DISCHARGED TO HOME. CENTRAL LINE REMOVED BY RN. REVIEWED DISCHARGE INSTRUCTIONS, PATIENT DEMONSTRATED UNDERSTANDING.
== END 2022-02-22 12:10 | disposition home or self-care (01) | DRG 202 ==
LOC: ED 15:21 → ED-I 20:04 → ED 20:39 → MS2 20:40
PROVIDERS: Family Medicine; ADMIT Hospitalist; ATTEND Hospitalist
PROC: 02HV33Z Insertion of Infusion Device into Superior Vena Cava, Percutaneous Approach (ICD-10-PCS; principal; 2022-02-19)
DX: J45.901 Unspecified asthma with (acute) exacerbation (principal); Z68.42 Body mass index [BMI] 45.0-49.9, adult; R09.02 Hypoxemia; I10 Essential (primary) hypertension; R56.9 Unspecified convulsions; E66.9 Obesity, unspecified; F32.A Depression, unspecified; F41.9 Anxiety disorder, unspecified; K21.9 Gastro-esophageal reflux disease without esophagitis; Z86.14 Personal history of Methicillin resistant Staphylococcus aureus infection; Z20.822 Contact with and (suspected) exposure to COVID-19
CPT/HCPCS: Q9967

== ENCOUNTER 2022-04-07 17:13 | Inpatient (IN) | payer SELFPAY ==
[~2022-04-07] VITALS: Ht 177.8 cm; Wt 100.0 kg
[~2022-04-07 17:13] MED LIST changes: +ESCITALOPRAM OX20 MG PO; +JENCYCLA0.35 MG PO; +LEVETIRACETAM750 MG PO; -LEXAPRO10 MG PO; +PREDNISONE10 MG PO; -[UNRECOGNIZED DRUG - OTHER] PO
[2022-04-07 18:02] LABS: IMMATURE GRANULOCYTES 0.2 % (0.0-5.0); MEAN CELL VOLUME 79.7 fL CALC (80.0-100.0); MEAN CORPUSCULAR HGB 23.5 pG CALC (26.0-32.0); MEAN CORPUSCULAR HGB CONC 29.5 g/dL CAL (32.0-36.0); NEUT# 11.13 thou/uL (2.00-7.15); RED BLOOD COUNT 5.61 mill/uL (4.20-5.60); RED CELL DISTRI WIDTH 17.3 % (11.5-15.5)
[2022-04-07 18:03] LABS: HEMATOCRIT 44.7 % (37.0-47.0); HEMOGLOBIN 13.2 g/dl (12.0-16.0)
[2022-04-07 18:24] LABS: ALBUMIN 4.3 g/dL (3.2-5.0); ALKALINE PHOSPHATASE 150 u/l (38-126); ANION GAP 13 (6-22 (CALC)); BILIRUBIN, TOTAL 0.4 mg/dL (0.0-1.4); BUN 12 mg/dL (7-17); BUN/CREATININE RATIO 14 (12-20 (CALC)); CARBON DIOXIDE 23 mmol/l (22-30); CHLORIDE 106 mmol/l (95-108); CREATININE 0.8 mg/dL (0.5-1.0); GFR FOR AFR.AMER. > 60 ML/MIN (>=60 (CALC)); GFR OTHER RACES > 60 ML/MIN (>=60 (CALC)); SGOT/AST 29 u/l (14-36); SODIUM 138 mmol/l (137-146); TOTAL PROTEIN 8.3 g/dL (6.3-8.2)
[2022-04-07 21:23] VITALS: BP 134/87
[2022-04-08] VITALS (9 sets, daily range): BP systolic 101–120; BP diastolic 43–70
[2022-04-08 05:45] LABS: HEMATOCRIT 40.3 % (37.0-47.0); HEMOGLOBIN 11.9 g/dl (12.0-16.0); MEAN CORPUSCULAR HGB 23.6 pG CALC (26.0-32.0); MEAN CORPUSCULAR HGB CONC 29.5 g/dL CAL (32.0-36.0); RED BLOOD COUNT 5.04 mill/uL (4.20-5.60); RED CELL DISTRI WIDTH 16.8 % (11.5-15.5)
[2022-04-08 06:08] LABS: ANION GAP 13 (6-22 (CALC)); BUN 12 mg/dL (7-17); BUN/CREATININE RATIO 14 (12-20 (CALC)); CARBON DIOXIDE 20 mmol/l (22-30); CHLORIDE 108 mmol/l (95-108); CREATININE 0.8 mg/dL (0.5-1.0); GFR FOR AFR.AMER. > 60 ML/MIN (>=60 (CALC)); GFR OTHER RACES > 60 ML/MIN (>=60 (CALC)); POTASSIUM 4.6 mmol/l (3.5-5.1); SODIUM 138 mmol/l (137-146)
[2022-04-08 09:54] LABS: URINE BILIRUBIN - DIPSTICK NEGATIVE (NEGATIVE); URINE BLOOD DIPSTICK NEGATIVE (NEGATIVE); URINE COLOR YELLOW; URINE GLUCOSE - DIPSTICK NEGATIVE (NEGATIVE); URINE KETONE NEGATIVE (NEGATIVE); URINE LEUK ESTERASE TRACE (NEGATIVE); URINE NITRITE - DIPSTICK NEGATIVE (Negative); URINE PH 5.5 (4.5-8.0); URINE PROTEIN - DIPSTICK NEGATIVE (NEG-TRACE); URINE SPECIFIC GRAVITY 1.025; URINE UROBILINOGEN - DIPSTICK 0.2 E.U./dL (0.2)
[2022-04-08] MEDS ORDERED: VITAMIN D2 PO (11:14)
[2022-04-09] VITALS (10 sets, daily range): BP systolic 102–130; BP diastolic 47–86
[2022-04-09 05:30] LABS: HEMATOCRIT 39.9 % (37.0-47.0); HEMOGLOBIN 11.6 g/dl (12.0-16.0); IMMATURE GRANULOCYTES 0.3 % (0.0-5.0); MEAN CELL VOLUME 80.4 fL CALC (80.0-100.0); MEAN CORPUSCULAR HGB 23.4 pG CALC (26.0-32.0); MEAN CORPUSCULAR HGB CONC 29.1 g/dL CAL (32.0-36.0); NEUT# 14.92 thou/uL (2.00-7.15); RED BLOOD COUNT 4.96 mill/uL (4.20-5.60); RED CELL DISTRI WIDTH 16.6 % (11.5-15.5)
[2022-04-09 06:00] LABS: ALBUMIN 3.7 g/dL (3.2-5.0); ALKALINE PHOSPHATASE 129 u/l (38-126); ANION GAP 12 (6-22 (CALC)); BILIRUBIN, TOTAL 0.4 mg/dL (0.0-1.4); BUN 14 mg/dL (7-17); BUN/CREATININE RATIO 16 (12-20 (CALC)); CARBON DIOXIDE 21 mmol/l (22-30); CHLORIDE 109 mmol/l (95-108); CREATININE 0.9 mg/dL (0.5-1.0); GFR FOR AFR.AMER. > 60 ML/MIN (>=60 (CALC)); GFR OTHER RACES > 60 ML/MIN (>=60 (CALC)); MAGNESIUM 2.1 mg/dL (1.6-2.3); POTASSIUM 4.4 mmol/l (3.5-5.1); SGOT/AST 23 u/l (14-36); SODIUM 138 mmol/l (137-146); TOTAL PROTEIN 7.1 g/dL (6.3-8.2)
[2022-04-10 00:40] VITALS: BP 130/86
[2022-04-10 04:27] VITALS: BP 117/62
[2022-04-10 05:21] VITALS: BP 117/62
[2022-04-10 05:55] LABS: ALBUMIN 3.5 g/dL (3.2-5.0); ALKALINE PHOSPHATASE 100 u/l (38-126); ANION GAP 9 (6-22 (CALC)); BUN 16 mg/dL (7-17); BUN/CREATININE RATIO 19 (12-20 (CALC)); CARBON DIOXIDE 24 mmol/l (22-30); CHLORIDE 108 mmol/l (95-108); CREATININE 0.8 mg/dL (0.5-1.0); GFR FOR AFR.AMER. > 60 ML/MIN (>=60 (CALC)); GFR OTHER RACES > 60 ML/MIN (>=60 (CALC)); POTASSIUM 3.9 mmol/l (3.5-5.1); SGOT/AST 15 u/l (14-36); SODIUM 138 mmol/l (137-146); TOTAL PROTEIN 6.6 g/dL (6.3-8.2)
[2022-04-10 05:58] LABS: HEMATOCRIT 39.8 % (37.0-47.0); HEMOGLOBIN 11.6 g/dl (12.0-16.0); IMMATURE GRANULOCYTES 0.2 % (0.0-5.0); MEAN CELL VOLUME 80.2 fL CALC (80.0-100.0); MEAN CORPUSCULAR HGB 23.4 pG CALC (26.0-32.0); MEAN CORPUSCULAR HGB CONC 29.1 g/dL CAL (32.0-36.0); NEUT# 11.3 thou/uL (2.00-7.15); RED BLOOD COUNT 4.96 mill/uL (4.20-5.60)
[2022-04-10 06:09] LABS: BILIRUBIN, TOTAL 0.2 mg/dL (0.0-1.4)
[2022-04-10 06:48] VITALS: BP 110/48
[2022-04-10 10:53] VITALS: BP 99/46
[2022-04-10] MEDS ORDERED: DEXAMETHASON6 MG PO (12:27)
== END 2022-04-10 14:30 | disposition home or self-care (01) | DRG 194 ==
LOC: ED 17:13 → ED-I 20:05 → ED 20:38 → MS2 20:39
PROVIDERS: Nurse Practitioner; ADMIT Internal Medicine; ATTEND Hospitalist
DX: J18.9 Pneumonia, unspecified organism (principal); J45.41 Moderate persistent asthma with (acute) exacerbation; R09.02 Hypoxemia; K21.9 Gastro-esophageal reflux disease without esophagitis; F32.A Depression, unspecified; F41.9 Anxiety disorder, unspecified; E66.9 Obesity, unspecified; Z68.31 Body mass index [BMI] 31.0-31.9, adult; Z87.01 Personal history of pneumonia (recurrent); Z86.14 Personal history of Methicillin resistant Staphylococcus aureus infection; Z20.822 Contact with and (suspected) exposure to COVID-19
CPT/HCPCS: J1650; Q9967

== ENCOUNTER 2023-06-05 16:48 | Emergency (ER) | payer SELFPAY ==
[~2023-06-05] VITALS: Ht 177.8 cm; Wt 136.0 kg
[~2023-06-05 16:48] MED LIST changes: +DEXAMETHASON6 MG PO; +VITAMIN D2 PO
[2023-06-05 20:46] LABS: URINE BILIRUBIN - DIPSTICK Negative (NEGATIVE); URINE BLOOD DIPSTICK Trace-lysed (NEGATIVE); URINE GLUCOSE - DIPSTICK Negative (NEGATIVE); URINE KETONE Negative (NEGATIVE); URINE LEUK ESTERASE Negative (NEGATIVE); URINE NITRITE - DIPSTICK Negative (Negative); URINE PROTEIN - DIPSTICK Negative (NEG-TRACE); URINE SPECIFIC GRAVITY >=1.030; URINE UROBILINOGEN - DIPSTICK 0.2 E.U./dL (0.2)
[2023-06-05 20:47] LABS: URINE COLOR Yellow
[2023-06-05 21:02] LABS: BASO% 0.5 % (0-3); EOS% 2.9 % (0-8); HEMATOCRIT 39.4 % (37.0-47.0); HEMOGLOBIN 12.4 g/dl (12.0-16.0); IMMATURE GRANULOCYTES 0.2 % (0.0-5.0); LYMPH% 22.1 % (15-41); MEAN CELL VOLUME 80.6 fL CALC (80.0-100.0); MEAN CORPUSCULAR HGB 25.4 pG CALC (26.0-32.0); MEAN CORPUSCULAR HGB CONC 31.5 g/dL CAL (32.0-36.0); MONO% 8.8 % (2-13); NEUT# 6.61 thou/uL (2.00-7.15); NEUT% 65.5 % (42-76); RED BLOOD COUNT 4.89 mill/uL (4.20-5.60); RED CELL DISTRI WIDTH 14.1 % (11.5-15.5)
[2023-06-05 21:16] LABS: ANION GAP 10 (6-22 (CALC)); BUN 10 mg/dL (7-17); BUN/CREATININE RATIO 12 (12-20 (CALC)); CARBON DIOXIDE 24 mmol/l (22-30); CHLORIDE 108 mmol/l (95-108); CREATININE 0.8 mg/dL (0.5-1.0); GFR FOR AFR.AMER. > 60 ML/MIN (>=60 (CALC)); GFR OTHER RACES > 60 ML/MIN (>=60 (CALC)); POTASSIUM 4.5 mmol/l (3.5-5.1); SODIUM 138 mmol/l (137-146)
[2023-06-06] MEDS ORDERED: DICYCLOMINE HYD10 MG PO (00:01)
[2023-06-06 00:35] VITALS: BP 113/74
== END 2023-06-06 00:35 | disposition home or self-care (01) | DRG 392 ==
LOC: ED 16:48
PROVIDERS: Family Medicine
DX: R10.9 Unspecified abdominal pain (principal); M54.50 Low back pain, unspecified; R91.8 Other nonspecific abnormal finding of lung field; F41.9 Anxiety disorder, unspecified; F32.A Depression, unspecified; J45.909 Unspecified asthma, uncomplicated
CPT/HCPCS: Q9967

== ENCOUNTER 2023-09-30 18:07 | Emergency (ER) | payer OTHER ==
[~2023-09-30] VITALS: Ht 177.8 cm; Wt 140.6 kg
[~2023-09-30 18:07] MED LIST changes: +ADVAIR DISK1 IN; +AMOX/K CLAV875 M1 PO; +BUDESONIDE IN; +DICYCLOMINE HYD10 MG PO; +LEVOCETIRIZINE D5 MG PO; +PREDNISONE20 MG PO; +VENTOLIN HFA108 MCG IN; +VIBRAMYCIN100 M2 PO; +ZPAK PO; +[UNRECOGNIZED DRUG - OTHER] IN
[2023-09-30 18:34] VITALS: BP 112/57
[2023-09-30 19:01] LABS: BASO% 0.7 % (0-3); EOS% 4.1 % (0-8); HEMATOCRIT 41.2 % (37.0-47.0); HEMOGLOBIN 12.6 g/dl (12.0-16.0); IMMATURE GRANULOCYTES 0.3 % (0.0-5.0); LYMPH% 17.6 % (15-41); MEAN CELL VOLUME 80.3 fL CALC (80.0-100.0); MEAN CORPUSCULAR HGB 24.6 pG CALC (26.0-32.0); MEAN CORPUSCULAR HGB CONC 30.6 g/dL CAL (32.0-36.0); MONO% 7.1 % (2-13); NEUT# 9.32 thou/uL (2.00-7.15); NEUT% 70.2 % (42-76); RED BLOOD COUNT 5.13 mill/uL (4.20-5.60); RED CELL DISTRI WIDTH 14.7 % (11.5-15.5)
[2023-09-30 19:11] LABS: URINE BILIRUBIN - DIPSTICK Negative (NEGATIVE); URINE BLOOD DIPSTICK Small (NEGATIVE); URINE GLUCOSE - DIPSTICK Negative (NEGATIVE); URINE KETONE Negative (NEGATIVE); URINE LEUK ESTERASE Negative (NEGATIVE); URINE NITRITE - DIPSTICK Negative (Negative); URINE PROTEIN - DIPSTICK Negative (NEG-TRACE); URINE SPECIFIC GRAVITY >=1.030; URINE UROBILINOGEN - DIPSTICK 0.2 E.U./dL (0.2)
[2023-09-30 19:17] LABS: URINE COLOR Yellow
[2023-09-30 19:18] LABS: URINE SQUAMOUS EPITHELIAL CELL FEW EPI/hpf (0-FEW); URINE WBC 0-2 WBC/hpf (0-5)
[2023-09-30 19:19] LABS: ALKALINE PHOSPHATASE 156 u/l (38-126); ANION GAP 14 (6-22 (CALC)); BILIRUBIN, TOTAL 0.6 mg/dL (0.02-1.3); BUN 8 mg/dL (7-17); BUN/CREATININE RATIO 11 (12-20 (CALC)); CARBON DIOXIDE 19 mmol/l (22-30); CHLORIDE 109 mmol/l (95-108); CREATININE 0.8 mg/dL (0.5-1.0); GFR FOR AFR.AMER. > 60 ML/MIN (>=60 (CALC)); GFR OTHER RACES > 60 ML/MIN (>=60 (CALC)); SGOT/AST 33 u/l (14-36); SODIUM 138 mmol/l (137-146); TOTAL PROTEIN 7.9 g/dL (6.3-8.2)
[2023-09-30 19:21] VITALS: BP 133/57
[2023-09-30 19:31] VITALS: BP 143/65
[2023-09-30 20:01] VITALS: BP 130/84
[2023-09-30] MEDS ORDERED: ZPAK PO (20:30)
[2023-09-30] MEDS ORDERED: PREDNISONE20 MG PO (20:30)
[2023-09-30 20:31] VITALS: BP 118/75
[2023-09-30 20:43] VITALS: BP 118/75
== END 2023-09-30 21:00 | disposition home or self-care (01) ==
LOC: ED 18:07
PROVIDERS: Nurse Practitioner
DX: J45.901 Unspecified asthma with (acute) exacerbation (principal); Z20.822 Contact with and (suspected) exposure to COVID-19